=== PATIENT | female | born 2000 | race Two or more races ===

== ENCOUNTER 2024-10-14 09:12 | Emergency (ER) | payer BC, OTHER ==
[~2024-10-14] VITALS: Ht 160 cm; Wt 75.1 kg
[2024-10-14 10:03] VITALS: PULSE 65; RESP 16; O2SAT 97
--- NOTE | 2024-10-14 10:03 | ED.PDOC ---
Musculoskeletal HPI Comments 24 year old female presents to the ED with a chief complaint of LT great toe ingrown nail onset 1 year. Patient states she has been experiencing intermittent LT great toe ingrown nail, has gotten nail removed several times. For the past week, patient noticed pain worsen, purulent drainage and erythema. Denies any PMHx as well as fever, chills, cough, cold, congestion, numbness/tingling, nausea, vomiting. No other symptoms or modifying factors present at this time. Chief Complaint: Lower Extremity Time Seen by MD: 09:40 Primary Care Provider: unknown Reviewed Notes: Medications, Allergies Allergies: Coded Allergies: NO KNOWN ALLERGIES (Unverified , 10/14/24) Information Source: Patient Mode of Arrival: Ambulatory Location: Left Extremity Location: Great Toe Timing: Months Prehospital treatment: None Severity: Moderate Able to Move Extremity: Yes Bear Weight: Limited Pain: Moderate Mechanism: Spontaneous Circumstances: Spontaneous Symptoms: Swelling, Pain, Erythema DVT Risk Factors: NONE Past Medical History PAST MEDICAL HISTORY: Denies Surgical History: Denies all surgeries BUGGY DRIVER History: No Pertinent BUGGY DRIVER History Family History Family History: Reviewed,noncontributory to illness, No family hx of Cancer, No family hx of DM, No family hx of Heart kwame, No family hx of HTN, No family hx ofKidney kwame, No family hx of Liver kwame, No family hx of Lung kwame, No family hx of Stroke Social History Smoker: Non-Smoker Alcohol: Denies ETOH Use Drugs: Denies Drug Use Lives In: Home Constitutional: denies: chills, diaphoresis, fatigue, fever, malaise, sweats, weakness, others EENTM: denies: blurred vision, double vision, ear bleeding, ear discharge, ear drainage, ear pain, ear ringing, eye pain, eye redness, hearing loss, mouth pain, mouth swelling, nasal discharge, nose bleeding, nose congestion, nose pain, photophobia, tearing, throat pain, throat swelling, voice changes, others Respiratory: denies: cough, hemoptysis, orthopnea, SOB at rest, shortness of breath, SOB with excertion, stridor, wheezing, others Cardiovascular: denies: chest pain, dizzy spells, diaphoresis, Dyspnea on exertion, edema, irregular heart beat, left arm pain, lightheadedness, palpi tations, PND, syncope, others Gastrointestinal: denies: abdomen distended, abdominal pain, blood streaked bowels, constipated, diarrhea, dysphagia, difficulty swallowing, hematemesis, melena, nausea, poor appetite, poor fluid intake, rectal bleeding, rectal pain, vomiting, others Genitourinary: denies: abnormal vagina bleeding, burning, dyspareunia, dysuria, flank pain, frequency, hematuria, incontinence, pain, , vagina discharge, urgency, others Neurological: denies: dizziness, fainting, headache, left sided numbness, left sided weakness, numbness, paresthesia, pre-existing deficit, right sided numbness, right sided weakness, seizure, speech problems, tingling, tremors, weakness, others Musculoskeletal: reports: others (LT toe ingrown nail); denies: back pain, gout, joint pain, joint swelling, muscle pain, muscle stiffness, neck pain Integumetry: denies: bruises, change in color, change in hair/nails, dryness, laceration, lesions, lumps, rash, wounds, others Allergic/Immunocompromised: denies: Difficulty Healing, Frequent Infections, Hives, Itching, others Hematologic/Lymphatic: denies: anemia, blood clots, easy bleeding, easy bruising, swollen glands, others Endocrine: denies: excessive hunger, excessive sweating, excessive thirst, excessive urination, flushing, intolerance to cold, intolerance to heat, unex plained weight gain, unexplained weight loss, others Psychiatric: denies: anxiety, bipolar disorder, depression, hopeless, panic disorder, schizophrenia, sleepless, suicidal, others All Other Systems: Reviewed and Negative Physical Exam General Appearance: Moderate Distress, Normal HEENT: Normal ENT Inspection, Pharynx Normal, TMs Normal Neck: Full Range of Motion, Non-Tender, Normal, Normal Inspection Respiratory: Chest Non-Tender, Lungs Clear, No Accessory Muscle Use, No Respiratory Distress, Normal Breath Sounds Cardiovascular: No Edema, No JVD, No Murmur, No Gallop, Normal Peripheral Pulses, Regular Rate/Rhythm Breast Exam: Deferred Gastrointestinal: No Organomegaly, Non Tender, No Pulsatile Mass, Normal Bowel Sounds, Soft Genitalia: Deferred Pelvic: Deferred Rectal: Deferred Extremities: No calf tenderness, Normal capillary refill, Normal inspection, Normal range of motion, Non-tender, No pedal edema Musculoskeletal : Apperance: Normal Neurologic: Alert, licensed insurance agent II-XII nml as Tested, No Motor Deficits, Normal Affect, Normal Mood, No Sensory Deficits Cerebellar Function: Normal Reflexes: Normal Skin: Dry, Normal Color, Warm, Wounds (Left great toe) Peripheral Pulses: 3+ Radial (R), 3+ Radial (L) Lymphatic: No Adenopathy Was a procedure done? Was a procedure done?: No Differential Diagnosis EXT Differential Diagnosis: Cellulitis X-Ray, Labs, Meds, VS Vital Signs Date Time Temp Pulse Resp B/P (MAP) Pulse Ox O2 Delivery O2 Flow Rate FiO2 10/14/24 10:03 98.9 65 16 134/85 (101) 97 98.9 10/14/24 10:03 65 16 97 Room Air* 0 21 10/14/24 09:22 97.7 86 16 155/101 (119) 97 97.7 Patient alert. Came in because of left toe redness. Vitals stable. Answering questions. Ambulating. On examination she does have redness with mild swelling of the left toe. No sign of any sepsis. Was given prescription of amoxicillin clindamycin antibiotic. Was told to follow up with her primary care physician. Was told to come back if there is any problem. Time of 1ST Reevaluation: 10:10 Reevaluation 1ST: Unchanged Patient Education/Counseling: Diagnosis, Treatment, Prognosis Family Education/Counseling: No Family Present Departure 1 Departure Time of Disposition: 10:54 Impression: Primary Impression: Cellulitis Qualified Codes: L03.116 - Cellulitis of left lower limb Disposition: HOME / SELF CARE / HOMELESS Condition: Good e-Prescriptions Clindamycin Hcl (Clindamycin Hcl) 300 Mg Cap 1 CAP PO TID for 7 Days, #21 CAP Prov: RODOLFO ZAMUDIO MD 10/14/24 Amoxicillin Trihydrate (Amoxicillin) 500 Mg Tab 1 TAB PO TID for 7 Days, #21 TAB Prov: RODOLFO ZAMUDIO MD 10/14/24 Discharged With: Self Critical Care Note Critical Care Time?: No Stability Stability form required: No Heart Score Heart Score: Heart Score Response (Comments) Value History N/A 0 EKG N/A 0 Age N/A 0 Risk Factors N/A 0 Troponin N/A 0 Total 0 I personally scribed for RODOLFO ZAMUDIO MD ([email or web address]) on 10/14/24 at 10:03. Electronically submitted by Elizabeth Oliver ([email or web address]). RODOLFO ZAMUDIO MD October 14, 2024 10:03
[2024-10-14] MEDS ORDERED: CLIN1CAP70 PO (10:56)
[2024-10-14] MEDS ORDERED: AMOX500T3 PO (10:56)
== END 2024-10-14 11:01 | disposition home or self-care (01) ==
LOC: ER 09:12
DX: L03.116 Cellulitis of left lower limb (principal)